=== PATIENT | female | born 1965 | race African-American/Black ===

== ENCOUNTER → 2021-09-26 | Day surgery (SDC) | payer MEDICARE, MEDICAID ==
[~2021-09-26] VITALS: Ht 165.1 cm; Wt 106.6 kg
[~2021-09-26] MED LIST: ALPR2TAB2 PO; AMLO10TA4 PO; AMLO5TAB88 MT; ASPI-1497 PO; ATOR20TA65 PO; ATOR80TA MT; CARV12.545 MT; CHLO25TA2 PO; CHOL500051; DILT30TA38 PO; DOCU100T; ESK450; FENTANYL CITRATE/PF 50MCG/ML 2ML VIAL IV PRN; FENTANYL CITRATE/PF 50MCG/ML 2ML VIAL ONE; HYDR-519 PO; LIDOCAINE HCL 1% 10 MG/ML 10ML VIAL ONE; LURA40TA PO; MECL25TA3 PO; METF-416 MT; MIDAZOLAM HCL 2 MG/2 ML VIAL ONE; MILN50TA PO; OLME40TA11 PO; OMEP40CA PO; ONDANSETRON HCL 4MG/2ML INJ IV PRN; ONDANSETRON HCL 4MG/2ML INJ ONE; POTA20TA82; PREG225C PO; PROPOFOL 200MG/20ML VIAL IV ONE; PSYL425P3; RANI-655; SODIUM CHLORIDE 0.9% 1,000 ML IV SCH; TIOT18CA3 INH; VALA500T55 PO; ZYDS20
[2021-09-26 07:08] LABS: CLARITY URINE CLOUDY (CLEAR); COLOR URINE YELLOW (YELLOW); KETONES URINE TRACE (NEGATIVE); LEUKOCYTE ESTERASE URINE NEGATIVE (NEGATIVE); NITRITE URINE NEGATIVE (NEGATIVE); OCCULT BLOOD URINE NEGATIVE (NEGATIVE); PH URINE 5.5 (4.5-8.0); PROTEIN URINE TRACE (NEGATIVE); SPECIFIC GRAVITY URINE 1.029 (1.005-1.030)
[2021-09-26 07:09] LABS: UCG SCREEN NEGATIVE
== END | disposition home or self-care (01) ==
LOC: OR 06:25
PROVIDERS: ATTEND Obstetrics & Gynecology Obstetrics
DX: N95.0 Postmenopausal bleeding (principal); N80.9 Endometriosis, unspecified; I10 Essential (primary) hypertension; M19.90 Unspecified osteoarthritis, unspecified site; E11.9 Type 2 diabetes mellitus without complications; E78.00 Pure hypercholesterolemia, unspecified; F41.9 Anxiety disorder, unspecified; F32.9 Major depressive disorder, single episode, unspecified; Z79.82 Long term (current) use of aspirin; Z79.84 Long term (current) use of oral hypoglycemic drugs; Z79.899 Other long term (current) drug therapy; Z98.890 Other specified postprocedural states; Z72.89 Other problems related to lifestyle; Z88.8 Allergy status to other drugs, medicaments and biological substances; Z20.822 Contact with and (suspected) exposure to COVID-19
CPT/HCPCS: 58558; 81003; 81025; 82962; 87426; 88305; J2250; J2405; J2704; J3010; J3490